=== PATIENT | female | born 1960 | race Caucasian/White ===

== ENCOUNTER 2016-08-06 18:46 | Emergency (ER) | payer OTHER ==
[~2016-08-06] VITALS: Ht 162.6 cm; Wt 61.4 kg
[~2016-08-06 18:46] MED LIST: ASCO100089 PO; CHOL100094 PO; MULT-892 PO; VITA-219 PO
[2016-08-06 18:55] VITALS: BP 146/82; PULSE 84; RESP 16; O2SAT 96
--- NOTE | 2016-08-06 19:03 | ED.REPORT ---
HPI-Extremity Problem Lower Date of Service Aug 06, 2016 ED Provider: Vic Szymanski DO A 55 year old female with a history of arthritis and smoking presents to the ED complaining of left leg pain. The pt was standing at a wake several hours ago while holding a baby when she leaned to the side. She felt a "pop" in her left knee accompanied by immediate pain radiating from the knee to her left ankle and hip. The pain has persisted and she has been unable to bear weight on the leg since this occurred. Nursing Notes Stated Complaint: LEFT LEG PAIN Chief Complaint: Extremity Trauma Nursing Notes Reviewed: Yes Allergies: Coded Allergies: No Known Allergies (Verified Allergy, Unknown, 04/21/14) Scheduled Ascorbic Acid (Vitamin C) 1,000 Mg Tab.chew 1 TAB PO DAILY Multivitamin (Daily Value) 1 Each Tablet 1 EACH PO DAILY Vitamin B Complex (B Complex) 1 Each Tablet 1 TAB PO DAILY Miscellaneous Medications Cholecalciferol (Vitamin D3) (Vitamin D3) 1,000 Unit Capsule 1,000 UNIT PO General Time Seen by MD: 19:02 Chief Complaint Knee injury left Hx Obtained From: Patient Arrived By: Wheelchair Onset Occurred: 5 - 8 hours ago Symptom Duration: Since onset Recent Healthcare: No recent doctor visit, No recent hospitalization Similar Sx Previous: No Past Medical History Past Medical History arthritis Past Surgical History Reports: Tubal ligation Smoking History Current Every Day Smoker, Light Tobacco Smoker Social History Alcohol Use: Denies alcohol use (quit at age 23) Ambulatory Status Independent Review of Systems Constitutional: Denies: Fever Musculoskeletal: Reports: Extremity pain Skin: Denies Rash Complete sys rev & neg: except as marked. Respiratory: Denies: Non-productive cough GI: Denies: Abdominal pain Physical Exam Initial Vital Signs Vital Signs (First) Date Time Temp Pulse Resp B/P Pulse Ox O2 Delivery O2 Flow Rate FiO2 08/06/16 18:55 37.2 84 16 146/82 96 Room Air Initial VS: Reviewed Lower Extremity / Pelvis / MS: No deformity bounding pulses posterior knee tenderness Ankle / Foot: Atraumatic, Full range of motion General/Constitutional: Awake, Alert Respiratory / Chest: Atraumatic, Breath sounds NL, Breath sounds = bilat, No respiratory distress Cardiovascular: Heart rate NL, Regular rhythm, Heart sounds NL Skin: Atraumatic, Color NL, No rash, Warm, Dry Neurologic: Oriented X3, Speech NL, No motor deficits, No sensory deficits Head / Eyes: Atraumatic, Normocephalic, PERRL, EOMI ENT: Atraumatic, Airway patent, Mucous membranes moist Neck: Atraumatic, Supple, Full range of motion Abdomen: Atraumatic, Soft, Non-tender Back: Atraumatic, Full range of motion Upper Extremity / MS: Atraumatic, Full range of motion Psychiatric: Affect NL, Mood NL Interpretation & Diagnostics Pulse Oximetry Interpretation Pulse Oximetry Interpretation: 96% on room air Pulse Oximetry: Pulse Ox normal X-Ray Interpretation Xray Interpretation: IMPRESSION: Calcification is present in the medial femoral condyle, possibly related to avulsion injury. Dictated by: Priscilla Lema M.D. on 08/06/2016 at 19:38 Approved by: Priscilla Lema M.D. on 08/06/2016 at 19:39 X-Ray Ordered: Knee left Interpretation / Wet Read by: Interpret - Radiologist Re-Eval/Medical Decision Source of Hx: Old records Re-Evaluation/Progress : Time of Eval: 20:31 Patient Status: Condition improved Re-Evaluation/Progress Note: Pt rechecked, who is accompanied by family. The diagnosis and plan for discharge are discussed. The pt understands and agrees with the plan. All questions are addressed at this time. Counseled Regarding: Diagnosis, Lab results, Need for follow-up, When/why to return to ED Discharge & Departure Impression: Primary Impression: Knee fracture, left Disposition: Home Discharge Condition All VS Reviewed: Yes Condition: Stable Patient Instructions: Crutch Instructions (ED) Additional Instructions: Your x-ray is suspicious for an avulsion fracture. This may require an MRI to further delineate your injury. Take 1-2 Percocet every 6 hours as needed for severe pain. Do not drive, drink alcohol or consume acetaminophen while taking the Percocet. Call Dr. Virk (orthopedist) on Monday to arrange for a follow up appointment next week. Wear the knee immobilizer and use crutches until you are seen in follow up. Return to the emergency department if you develop any new or worsening symptoms. Referrals: Pb Lentz ND (PCP) Jared Virk MD Scribe Attestation Portions of this note were transcribed by Lyle Mendes. I, Dr. Szymanski personally performed the history, physical exam and medical decision-making; I reviewed and confirmed the accuracy of the information in the transcribed note. Signed by: Peterson Casanova, 08/06/16 and 2103. copies to: Pb Lentz ND; Jared Virk MD, Todd P DO Aug 06, 2016 19:02 LYLE MENDES Aug 06, 2016 19:10
[2016-08-06] MEDS ORDERED: _oxyCODONE/APAP 5-325 mg Tablet PO PRN (19:10)
[2016-08-06] MEDS ORDERED: oxyCODONE-Acetamin 5-325 mg Tablet PO ONE (19:10)
--- NOTE | 2016-08-06 19:40 | DRSVH ---
PROCEDURE: X-RAY LEFT KNEE, THREE VIEWS ([id number]) INDICATIONS: posterior knee pain, felt a 'pop' TECHNIQUE: 3 views of the knee were acquired. COMPARISON: None. FINDINGS: Bones: Calcification is present adjacent to the medial femoral condyle. No suspicious bony lesions. Soft tissues: No joint effusion. No suspicious soft tissue calcifications. IMPRESSION: Calcification is present in the medial femoral condyle, possibly related to avulsion inju ry. Dictated by: Priscilla Lema M.D. on 08/06/2016 at 19:38 Approved by: Priscilla Lema M.D. on 08/06/2016 at 19:39
[2016-08-06 21:09] VITALS: BP 152/72; PULSE 75; RESP 16; O2SAT 96
== END 2016-08-06 21:00 | disposition home or self-care (01) ==
LOC: SED 18:46
DX: S82.002A Unspecified fracture of left patella, initial encounter for closed fracture (principal); X50.1XXA Overexertion from prolonged static or awkward postures, initial encounter; Y93.89 Activity, other specified; Y92.89 Other specified places as the place of occurrence of the external cause; Y99.8 Other external cause status; F17.200 Nicotine dependence, unspecified, uncomplicated
CPT/HCPCS: 73562; 96372; 99284; J1885